=== PATIENT | female | born 1940 | race Caucasian/White ===

== ENCOUNTER 2016-11-22 06:47 | Day surgery (SDC) | payer MEDICARE, OTHER ==
[~2016-11-22 06:47] MED LIST: ALLOPURINOL100 MG PO; ASPIRIN 8181 MG PO; BIOTIN 5000 OR; CIPROFLOXACN500 MG PO; CITRACA1 OR; DITROPAN PO; FLUZONE SPLT1 M1 IM; GLIMEPIRIDE2 MG PO; ISTALOL0.5 % OP; LATANOPROST0.005 % OP; LOSARTAN POTAS100 MG OR; LOSARTAN POTAS100 MG PO; MAXZIDE-2537.5 MG/TA PO; MELOXICAM15 MG PO; METFORMIN500 MG PO; MULTIVITAM10 OR; NORCO1 TA2 PO; OMEPRAZOLE20 M1 PO; ONGLYZA5 MG OR; ONGLYZA5 MG PO; PRAVASTATIN SOD20 MG PO; PROTONIX40 M2 PO; TRESIBA FL100 UNIT/M SC
[2016-11-22 08:07] VITALS: BP 143/75
== END 2016-11-22 09:10 | disposition home or self-care (01) ==
LOC: ENDO 06:47
PROVIDERS: ATTEND Surgery
PROC: 0DJD8ZZ Inspection of Lower Intestinal Tract, Via Natural or Artificial Opening Endoscopic (ICD-10-PCS; principal; 2016-11-22)
DX: Z12.11 Encounter for screening for malignant neoplasm of colon (principal); I10 Essential (primary) hypertension; E11.9 Type 2 diabetes mellitus without complications; K57.30 Diverticulosis of large intestine without perforation or abscess without bleeding

== ENCOUNTER → 2018-10-03 | Outpatient (REF) | payer MEDICARE, OTHER ==
[2018-10-03 09:15] LABS: HEMATOCRIT 42.1 % (37.0-47.0); HEMOGLOBIN 13.2 g/dl (12.0-16.0); MEAN CELL VOLUME 91.1 fL CALC (80.0-100.0); MEAN CORPUSCULAR HGB 28.6 pG CALC (26.0-32.0); MEAN CORPUSCULAR HGB CONC 31.4 g/L CALC (32.0-36.0); RED BLOOD COUNT 4.62 mill/uL (4.20-5.60); RED CELL DISTRI WIDTH 14.6 % (11.5-15.5)
[2018-10-03 09:46] LABS: ALBUMIN 4.2 g/dL (3.2-5.0); BILIRUBIN, TOTAL 0.5 mg/dL (0.0-1.4); CREATININE 1.1 mg/dL (0.5-1.0); POTASSIUM 4.2 mmol/l (3.5-5.1); TOTAL PROTEIN 7.5 g/dL (6.3-8.2)
[2018-10-03 15:16] LABS: URINE BILIRUBIN - DIPSTICK NEGATIVE (NEGATIVE); URINE BLOOD DIPSTICK TRACE-INTACT (NEGATIVE); URINE COLOR YELLOW; URINE GLUCOSE - DIPSTICK NEGATIVE (NEGATIVE); URINE KETONE NEGATIVE (NEGATIVE); URINE LEUK ESTERASE MODERATE (NEGATIVE); URINE NITRITE - DIPSTICK POSITIVE (Negative); URINE PH 5.5 (4.5-8.0); URINE PROTEIN - DIPSTICK TRACE mg/dL (NEG-TRACE); URINE SPECIFIC GRAVITY 1.015; URINE UROBILINOGEN - DIPSTICK 0.2 E.U./dL (0.2)
[2018-10-03 15:25] LABS: URINE BACTERIA MODERATE hpf; URINE SQUAMOUS EPITHELIAL CELL FEW EPI/hpf (0-FEW); URINE WBC TNTC WBC/hpf (0-5)
== END | disposition home or self-care (01) ==
LOC: LAB 07:42
PROVIDERS: ATTEND Internal Medicine
DX: E11.40 Type 2 diabetes mellitus with diabetic neuropathy, unspecified (principal); E11.65 Type 2 diabetes mellitus with hyperglycemia; E78.5 Hyperlipidemia, unspecified; I10 Essential (primary) hypertension; N18.2 Chronic kidney disease, stage 2 (mild); B96.1 Klebsiella pneumoniae [K. pneumoniae] as the cause of diseases classified elsewhere; R82.90 Unspecified abnormal findings in urine

== ENCOUNTER 2018-11-28 08:48 | Day surgery (SDC) | payer MEDICARE, OTHER ==
[~2018-11-28 08:48] MED LIST changes: +AMLODIPINE5 MG PO; +ASPIRIN PO; -BIOTIN 5000 OR; +BIOTIN 5000 PO; +COZAAR100 MG PO; +HEMP OIL PO; -LATANOPROST0.005 % OP; +OZEMPIC2 MG/1.5 M SC; +PANTOPRAZOLE SO40 MG PO; +XALATAN 0.005%2.5 ML OU
[2018-11-28 11:30] VITALS: BP 147/70
== END 2018-11-28 12:00 | disposition home or self-care (01) ==
LOC: ENDO 08:48 → ORM 12:00 → ENDO 12:00
PROVIDERS: ATTEND Surgery
PROC: 0DB48ZX Excision of Esophagogastric Junction, Via Natural or Artificial Opening Endoscopic, Diagnostic (ICD-10-PCS; principal; 2018-11-28)
PROC: 0DB78ZX Excision of Stomach, Pylorus, Via Natural or Artificial Opening Endoscopic, Diagnostic (ICD-10-PCS; 2018-11-28)
DX: K21.0 Gastro-esophageal reflux disease with esophagitis (principal); K44.9 Diaphragmatic hernia without obstruction or gangrene; K29.60 Other gastritis without bleeding; I10 Essential (primary) hypertension; E11.9 Type 2 diabetes mellitus without complications; Z80.0 Family history of malignant neoplasm of digestive organs

== ENCOUNTER 2020-10-08 06:06 | Day surgery (SDC) | payer MEDICARE, OTHER ==
[~2020-10-08] VITALS: Ht 157.5 cm; Wt 87.1 kg
[~2020-10-08 06:06] MED LIST changes: +CALCITRIOL0.25 MC1 PO; +COQ10100 MG PO; +CRANBERR3 PO; +KEFLEX500 MG PO; +LANTUS100 UNIT/M SC
[2020-10-08 10:01] VITALS: BP 134/63
== END 2020-10-08 10:21 | disposition home or self-care (01) ==
LOC: ORM 06:06
PROVIDERS: ATTEND Urology
PROC: 0TBB8ZX Excision of Bladder, Via Natural or Artificial Opening Endoscopic, Diagnostic (ICD-10-PCS; principal; 2020-10-08)
DX: N30.20 Other chronic cystitis without hematuria (principal); N32.81 Overactive bladder; E11.22 Type 2 diabetes mellitus with diabetic chronic kidney disease; I12.9 Hypertensive chronic kidney disease with stage 1 through stage 4 chronic kidney disease, or unspecified chronic kidney disease; N18.30 Chronic kidney disease, stage 3 unspecified; E11.42 Type 2 diabetes mellitus with diabetic polyneuropathy; E78.5 Hyperlipidemia, unspecified; E20.9 Hypoparathyroidism, unspecified; Z79.899 Other long term (current) drug therapy; Z87.440 Personal history of urinary (tract) infections
CPT/HCPCS: J0131

== ENCOUNTER 2020-11-26 14:54 | Observation (INO) | payer MEDICARE, OTHER ==
[~2020-11-26] VITALS: Ht 157.5 cm; Wt 85.1 kg
--- NOTE | 2020-11-26 14:55 | NUR ---
TO ROOM VIA WHEELCHAIR, ACCOMPANIED BY VISITOR. AT BEDSIDE.
--- NOTE | 2020-11-26 15:30 | NUR ---
RESTING ON STRETCHER. CALL HYATT WITHIN REACH. FAMILY FRIEND AT BEDSIDE.
[2020-11-26 16:00] LABS: HEMATOCRIT 39.8 % (37.0-47.0); HEMOGLOBIN 12.7 g/dl (12.0-16.0); IMMATURE GRANULOCYTES 0.3 % (0.0-5.0); MEAN CELL VOLUME 87.7 fL CALC (80.0-100.0); MEAN CORPUSCULAR HGB CONC 31.9 g/dL CAL (32.0-36.0); NEUT# 7.03 thou/uL (2.00-7.15); RED BLOOD COUNT 4.54 mill/uL (4.20-5.60); RED CELL DISTRI WIDTH 14.3 % (11.5-15.5)
[2020-11-26 16:30] LABS: D-DIMER 0.57 mg/L (0.19-0.60)
[2020-11-26 16:35] LABS: ACT PARTIAL THROMBO TIME 24.9 SECONDS (20.0-32.5); PROTHROMBIN TIME 9.9 SECONDS (9.0-12.5)
[2020-11-26 16:39] LABS: ALBUMIN 4.4 g/dL (3.2-5.0); ANION GAP 12 (6-22 (CALC)); BUN 19 mg/dL (8-23); BUN/CREATININE RATIO 15 (12-20 (CALC)); CARBON DIOXIDE 28 mmol/l (22-30); CHLORIDE 101 mmol/l (95-108); CREATININE 1.3 mg/dL (0.5-1.0); GFR 40 ML/MIN (>=60 (CALC)); GFR FOR AFR.AMER. 48 ML/MIN (>=60 (CALC)); LIPASE 65 u/l (23-300); MAGNESIUM 1.8 mg/dL (1.6-2.3); POTASSIUM 3.8 mmol/l (3.5-5.1); SODIUM 137 mmol/l (137-146); TOTAL PROTEIN 8.1 g/dL (6.3-8.2)
[2020-11-26 16:44] LABS: ALKALINE PHOSPHATASE 185 u/l (38-126); SGOT/AST 88 u/l (9-36)
--- NOTE | 2020-11-26 17:22 | NUR ---
COVID SWAB COLLECTED, ISOLATION PRECAUTIONS INITIATED.
--- NOTE | 2020-11-26 17:30 | NUR ---
AMBULATED TO BATHROOM WITH STEADY GAIT.
--- NOTE | 2020-11-26 19:00 | NUR ---
IN ROOM INTRODUCED SELF TO PT. NO C/O CP OR SOB OFFERED. V/S/ STABLE.
--- NOTE | 2020-11-26 19:30 | NUR ---
PT. MADE AWARE OF ADMISSION, VERBALIZED UNDERSTANDING.
--- NOTE | 2020-11-26 20:14 | NUR ---
Admission Note Report Given to: TOPHER MANZO Transported by: Wheelchair X Stretcher Transported with: X Nurse Transporter X Patent IV O2 X Commodity Lead Location: ICU X [facility]
--- NOTE | 2020-11-26 20:41 | NUR ---
TAKEN TO MS FLOOR VIA STRETCHER, NO C/O.
[2020-11-26 20:45] VITALS: BP 177/75
--- NOTE | 2020-11-26 20:51 | NUR ---
PT ARRIVED TO MED SURG UNIT VIA STRETCHER ACCOMPANIED BY ED NURSE. PT APPEARS TO BE IN STABLE CONDITION AT THIS TIME. PT SELF AMBULATED TO RESTROOM AND TO THE BED. OFFERED FOR HER TO REMOVE PANTS, BUT SHE DENIED NEED. PT DENIED ANY OPEN CUTS WOUNDS OR OPEN SKIN AREAS. DENIES DIZZINESS. ASSESSMENT COMPLETED AT THIS TIME. V/S ASSESSED ALSO AT THIS TIME. CALL LIGHT, LIGHTS, BED REVIEWED WITH PT. SHE VERBALIZED UNDERSTANDING.
[2020-11-26 21:11] LABS: URINE BILIRUBIN - DIPSTICK NEGATIVE (NEGATIVE); URINE BLOOD DIPSTICK NEGATIVE (NEGATIVE); URINE CLARITY CLEAR; URINE COLOR YELLOW; URINE GLUCOSE - DIPSTICK NEGATIVE (NEGATIVE); URINE KETONE NEGATIVE (NEGATIVE); URINE LEUK ESTERASE SMALL (Negative); URINE NITRITE - DIPSTICK NEGATIVE (Negative); URINE PROTEIN - DIPSTICK NEGATIVE (NEG-TRACE); URINE UROBILINOGEN - DIPSTICK 0.2 E.U./dL (0.2)
[2020-11-26 21:18] LABS: URINE SQUAMOUS EPITHELIAL CELL FEW EPI/hpf (0-FEW)
--- NOTE | 2020-11-26 22:18 | NUR ---
PT REFUSES LIPITOR REPORTING THAT SHE TAKES IT IN THE AM AND HAS ALREADY TAKEN IT THIS DAY. THIS MEDICAITON RETURNED AT THIS TIME.
[2020-11-27] VITALS: BP 131/71
--- NOTE | 2020-11-27 01:50 | NUR ---
PT IS SLEEPING, NO S/O DISTRESS NOTED. CALL LIGHT W/IN REACH.
[2020-11-27 03:30] VITALS: BP 137/67
--- NOTE | 2020-11-27 05:30 | NUR ---
ED CALLED TO REPORT NEEDING BATTERIES CHANGED IN SUPERVISOR FEED HOUSE. PT WAS SLEEPING, AWOKE TO MY CHANGING BATTERIES, DENIED ANY NEEDS AT THIS TIME. NO S/O DISTRESS. CALL LIGHT AT SIDE.
[2020-11-27 06:21] LABS: HEMOGLOBIN 12.2 g/dl (12.0-16.0); IMMATURE GRANULOCYTES 0.3 % (0.0-5.0); MEAN CORPUSCULAR HGB 27.5 pG CALC (26.0-32.0); MEAN CORPUSCULAR HGB CONC 31.3 g/dL CAL (32.0-36.0); NEUT# 4.62 thou/uL (2.00-7.15); RED BLOOD COUNT 4.43 mill/uL (4.20-5.60); RED CELL DISTRI WIDTH 14.3 % (11.5-15.5)
[2020-11-27 06:34] LABS: CREATININE 1.1 mg/dL (0.5-1.0)
[2020-11-27 07:15] VITALS: BP 132/62
--- NOTE | 2020-11-27 07:15 | NUR ---
PATIENT LAYING IN BED AT THIS TIME DENIES ANY NEEDS. PAIN IS A 0 AT THIS TIME TELE MONITOR ON AND BEING MONITORED BY ED. CALL LIGHT AND PERSONAL ITEMS WITHIN REACH. SIDERAILS UP X 2 TONG SETTER DONE SEE INTERVENTIONS.
[2020-11-27 10:25] VITALS: BP 134/72
--- NOTE | 2020-11-27 11:27 | NUR ---
PATIENT RESTING IN BED AT THIS TIME. PATIENT DENIES ANY NEED CURRENLTY. SIDERAILS ARE UP CALL LIGHT IS WITHIN REACH. TELE MONITOR ON AND BEING MONITORED BY ED.
--- NOTE | 2020-11-27 12:47 | NUR ---
PATIENT D/C AT THIS TIME PATIENT VERBALIZES UNDERSTANDING OF D/C INSTRUCTION ED CALLED AND NOTIFIED OF TELE REMOVAL AT THIS TIME.
--- NOTE | 2020-11-27 13:12 | NUR ---
Discharge instructions given. Patient verbalizes understanding of same. Discharged in stable condition via Wheelchair to Home with family. All belongings sent with pt.
== END 2020-11-27 13:12 | disposition home or self-care (01) ==
LOC: ED 14:54 → MS2 19:10
PROVIDERS: ADMIT Internal Medicine; ATTEND Internal Medicine
DX: R07.9 Chest pain, unspecified (principal); I10 Essential (primary) hypertension; E11.9 Type 2 diabetes mellitus without complications; E78.5 Hyperlipidemia, unspecified; K21.9 Gastro-esophageal reflux disease without esophagitis; Z79.4 Long term (current) use of insulin; Z86.16 Personal history of COVID-19; Z20.822 Contact with and (suspected) exposure to COVID-19
CPT/HCPCS: G0378

== ENCOUNTER 2022-08-16 07:51 | Emergency (ER) | payer MEDICARE ==
[~2022-08-16] VITALS: Ht 157.5 cm; Wt 80.0 kg
[2022-08-16 08:18] VITALS: BP 146/75
[2022-08-16 09:43] VITALS: BP 146/75
[2022-08-16] MEDS ORDERED: VOLTAREN1%GEL TOP (09:43)
== END 2022-08-16 10:01 | disposition home or self-care (01) ==
LOC: ED 07:51
DX: M19.031 Primary osteoarthritis, right wrist (principal); I10 Essential (primary) hypertension; E11.9 Type 2 diabetes mellitus without complications; K21.9 Gastro-esophageal reflux disease without esophagitis; Z86.16 Personal history of COVID-19; Z79.4 Long term (current) use of insulin

== ENCOUNTER 2023-09-03 07:44 | Emergency (ER) | payer MEDICARE ==
[~2023-09-03] VITALS: Ht 157.5 cm; Wt 79.0 kg
[~2023-09-03 07:44] MED LIST changes: +VOLTAREN1%GEL TOP
[2023-09-03 08:58] VITALS: BP 164/57
[2023-09-03 09:01] VITALS: BP 159/79
[2023-09-03 09:28] LABS: URINE BLOOD DIPSTICK Negative (NEGATIVE); URINE GLUCOSE - DIPSTICK 500 mg/dL (NEGATIVE); URINE KETONE Negative (NEGATIVE); URINE LEUK ESTERASE Negative (NEGATIVE); URINE PH 6.5 (4.5-8.0); URINE PROTEIN - DIPSTICK 100 mg/dL (NEG-TRACE)
[2023-09-03 09:29] LABS: URINE COLOR Orange; URINE NITRITE - DIPSTICK Positive (Negative)
[2023-09-03 09:30] LABS: URINE BACTERIA FEW hpf; URINE EPITHELIAL CELLS FEW EPI/hpf (0-FEW)
[2023-09-03 09:31] VITALS: BP 143/52
[2023-09-03] MEDS ORDERED: OMNI-PAC300 MG PO (09:59)
[2023-09-03 10:01] VITALS: BP 140/50
[2023-09-03 10:15] VITALS: BP 140/50
== END 2023-09-03 10:28 | disposition home or self-care (01) ==
LOC: ED 07:44
PROVIDERS: Family Medicine
DX: N39.0 Urinary tract infection, site not specified (principal); R31.9 Hematuria, unspecified; B95.4 Other streptococcus as the cause of diseases classified elsewhere; M25.551 Pain in right hip; I10 Essential (primary) hypertension; E11.9 Type 2 diabetes mellitus without complications; K21.9 Gastro-esophageal reflux disease without esophagitis; Z86.16 Personal history of COVID-19; Z79.4 Long term (current) use of insulin